=== PATIENT | male | born 1960 | race Caucasian/White ===

== ENCOUNTER 2017-10-14 18:17 | Emergency (ER) | payer MEDICARE, BC ==
[~2017-10-14] VITALS: Ht 170.2 cm; Wt 80.0 kg
[~2017-10-14 18:17] MED LIST: ADVA100A INH; ADVI200C9 PO; ALBU6.7H INH; AMLO5 PO; CARE PO; CLAR10TA7 PO; COLON HEALTH PO; ESTE500T6 PO; FENO134C PO; FISH1000 PO; GING500C2 PO; LORTA10 PO; MULTTAB50 PO; PRIL40CA PO; ROSU5 PO; SAW450CA2 PO; SERT100 PO; ZOLP10TA3 PO; [UNRECOGNIZED DRUG - CODE] PO; [UNRECOGNIZED DRUG - OTHER] PO; [UNRECOGNIZED DRUG - OTHER] PO; [UNRECOGNIZED DRUG - REMARK] PO
[2017-10-14 18:18] VITALS: BP 186/89; PULSE 60; RESP 16; TEMP 98.5; O2SAT 100
== END 2017-10-14 20:30 | disposition left against medical advice (07) ==
LOC: NEPJ 18:17
DX: Z00.00 Encounter for general adult medical examination without abnormal findings (principal); Z53.21 Procedure and treatment not carried out due to patient leaving prior to being seen by health care provider
CPT/HCPCS: 99281